=== PATIENT | male | born 1990 | race Hispanic/Latino ===

== ENCOUNTER 2023-07-31 04:32 | Emergency (ER) | payer SELFPAY ==
[2023-07-31] MEDS ORDERED: Ketorolac Tromethamine 30 MG (1 mL) VIAL ONE (05:30)
[2023-07-31 05:53] LABS: %Basophils 1.2 % (0.0-1.0); %Lymphocytes 27.2 % (21.0-51.0); %Neutrophils 53.4 % (42.0-75.0); Hematocrit 40.6 % (42.0-52.0); Hemoglobin 13.5 g/dL (14.0-18.0); Mean Corpuscular HGB CONC 33.3 g/dL (32.0-36.0); Mean Corpuscular Hemoglobin 30.3 pg (27.0-31.0); Mean Corpuscular Volume 91.2 fL (78.0-98.0); Mean Platelet Volume 10.5 fL (7.4-10.4); Platelet Count 327 10x3/uL (130-400); Red Blood Cell (RBC) Count 4.45 mill/uL (4.70-6.10)
[2023-07-31 06:03] LABS: ALT (SGPT) 247 U/L (8-55); AST (SGOT) 111 U/L (5-34); Albumin 3.8 g/dL (3.5-5.0); Alkaline Phosphatase 84 U/L (40-110); Anion Gap 14 mmol/L (10-20); BUN (Urea Nitrogen) 12 mg/dL (8.9-20.6); Bilirubin, Total 0.4 mg/dL (0.2-1.2); CK (CPK) 39 U/L (30-200); Calc. Creatinine Clearance 0 mL/min (70-130); Calcium 9.3 mg/dL (7.8-10.44); Carbon Dioxide 22 mmol/L (22-29); Chloride 108 mmol/L (98-107); Estimated GFR 119; Globulin 3.5 g/dL (2.4-3.5); Glucose 108 mg/dL (70-105); Protein, Total 7.3 g/dL (6.0-8.3); Sodium 140 mmol/L (136-145)
[2023-07-31] MEDS ORDERED: Cyclobenzaprine 10 MG TAB ONE (06:16)
[2023-07-31] MEDS ORDERED: Lidocaine 4% Patch TD SCH (06:30)
[2023-07-31] MEDS ORDERED: Transdermal Patch Removal TOP SCH (18:30)
== END 2023-07-31 07:10 | disposition home or self-care (01) ==
LOC: ERS 04:32
DX: M54.2 Cervicalgia (principal); M25.511 Pain in right shoulder; Z55.6 Problems related to health literacy
CPT/HCPCS: 36415; 72125; 80053; 82550; 84443; 85025; 96372; J1885